=== PATIENT | male | born 1960 | race Caucasian/White ===

== ENCOUNTER 2016-07-28 08:33 | Day surgery (SDC) | payer BC ==
[~2016-07-28 08:33] MED LIST: Lactated Ringers 1,000 ML IV SCH
[2016-07-28] MEDS ORDERED: Propofol 200 MG/20 ML SDV ONE (10:41)
[2016-07-28] MEDS ORDERED: fentaNYL 100 MCG/2 ML SDV ONE (10:41)
--- NOTE | 2016-07-28 12:56 | OR ---
PREOPERATIVE DIAGNOSIS: Family history of colon cancer, father. POSTOPERATIVE DIAGNOSIS: Normal colonoscopic exam. PROCEDURE PROPOSED: Total flexible colonoscopy. PROCEDURE DONE: Total flexible colonoscopy. INDICATION: This is a 56-year-old gentleman who comes in for colonic surveillance due to a family history of his father having had colon cancer. Last examination was about 5 to 6 years ago. TECHNIQUE: The patient was brought to the endoscopy suite, placed in left lateral decubitus position. He was sedated with propofol per [employer]. The flexible video colonoscope was then passed transanally and under visualization advanced to the cecum. Examination revealed a normal ascending, transverse, descending, sigmoid, and rectal colon. There was no evidence of any polyps, diverticulosis, colitis, or other abnormalities. The scope was then withdrawn. The patient tolerated the procedure well. IMPRESSION: Essentially normal colonoscopic exam. PLAN: The patient was reassured, and I felt that he should continue with colonic surveillance every 5 years due to his family history. SCM: 07/28/2016 11:49:12 MODL: 07/28/2016 12:45:35 /[id number]
[2016-07-28 14:57] VITALS: BP 122/71
== END 2016-07-28 13:15 | disposition home or self-care (01) ==
LOC: VM.SDS 08:33
PROVIDERS: ATTEND Surgery
DX: Z12.11 Encounter for screening for malignant neoplasm of colon (principal)
CPT/HCPCS: 45378; J2704; J3010; J7120